=== PATIENT | male | born 1965 | race Hispanic/Latino ===

== ENCOUNTER 2018-08-10 12:06 | Emergency (ER) | payer SELFPAY ==
[2018-08-10] MEDS ORDERED: Ondansetron ODT 4 MG TAB ONE (12:18)
[2018-08-10 12:45] LABS: #Lymphocytes 1.1 thou/uL (1.20-3.40); #Monocytes 0.6 thou/uL (0.11-0.59); %Basophils 0.2 % (0.0-1.0); %Eosinophils 0.3 % (0.0-10.0); %Lymphocytes 11.5 % (21.0-51.0); %Monocytes 6.5 % (0.0-10.0); %Neutrophils 81.4 % (42.0-75.0); Hemoglobin 14.1 g/dL (14.0-18.0); Mean Corpuscular HGB CONC 34.4 g/dL (32.0-36.0); Mean Corpuscular Hemoglobin 33.7 pg (27.0-31.0); Mean Corpuscular Volume 97.7 fL (78.0-98.0); Mean Platelet Volume 8.6 fL (7.4-10.4); Platelet Count 197 thou/uL (130-400); White Blood Cell (WBC) Count 9.8 thou/uL (4.8-10.8)
[2018-08-10 13:08] LABS: ALT (SGPT) 35 U/L (8-55); AST (SGOT) 28 U/L (5-34); Albumin 4.4 g/dL (3.5-5.0); Alkaline Phosphatase 86 U/L (40-150); Anion Gap 11 mmol/L (10-20); BUN (Urea Nitrogen) 18 mg/dL (8.4-25.7); Bilirubin, Total 0.9 mg/dL (0.2-1.2); Calc. Creatinine Clearance 0 mL/min (70-130); Calcium 9.2 mg/dL (7.8-10.44); Carbon Dioxide 25 mmol/L (22-29); Chloride 105 mmol/L (98-107); Estimated GFR-MDRD 58; Globulin 3.1 g/dL (2.4-3.5); Glucose 103 mg/dL (70-105); Lipase 18 U/L (8-78); Potassium 3.9 mmol/L (3.5-5.1); Protein, Total 7.5 g/dL (6.0-8.3); Sodium 137 mmol/L (136-145)
--- NOTE | 2018-08-10 16:33 | CT ---
CT ABDOMEN AND PELVIS WITH IV CONTRAST: HISTORY: Right-sided abdominal pain FINDINGS: There are mild dependent changes at the lung bases. There are changes of fatty infiltration the liver without focal mass or intrahepatic ductal dilatation. No calcified gallstones are seen. The pancreas, adrenal glands, spleen and left kidney are normal. There is right-sided hydroureteronephrosis secondary to a 4 mm right UVJ calculus. Mild periureteric inflammatory changes are present. The right kidney demonstrates slower parenchymal enhancement compared to the left. The prostate is enlarged. A normal-appearing appendix is present. There is no evidence of abdominal aortic aneurysm. Degenerati ve changes present in the spine. IMPRESSION: Obstructing 4 mm right UVJ calculus.
[2018-08-10] MEDS ORDERED: Ketorolac Tromethamine 30 MG/ML VIAL ONE (17:03)
[2018-08-10] MEDS ORDERED: Morphine 4 MG/ML VIAL ONE (17:31)
== END 2018-08-10 18:49 | disposition home or self-care (01) ==
LOC: ERS 12:06
DX: E86.0 Dehydration (principal); N13.2 Hydronephrosis with renal and ureteral calculous obstruction
CPT/HCPCS: 36415; 74177; 80053; 83690; 85025; 96361; 96374; 96375; J1885; J2270; Q0162